=== PATIENT | female | born 1995 | race Caucasian/White ===

== ENCOUNTER 2017-06-03 20:38 | Emergency (ER) | payer MEDICAID ==
[2017-06-03 21:47] VITALS: BP 147/75
--- NOTE | 2017-06-03 21:50 | UC ---
Back Pain HPI - HPI Summary HPI Summary: 21 y/o female presents to the urgent care c/o lower back pain on and off for the past month. Pt states Patient doesn't recall any injury. Pain is only with movement is 8/10 at rest is 0/0. She hs been taking excedrin at times which has helped. She sometimes feels numbness and tingling down her left lower leg. Pt deneis fever, urinary or fecal incontinence, saddle anesthesia, SOB, chest pain , N/V/D, dizziness. - History of Current Complaint Chief Complaint: UCBackPain Stated Complaint: BACK PAIN Time Seen by Provider: 06/03/17 21:49 Hx Obtained From: Patient Hx Last Menstrual Period: 05/17/17 ?: No Onset/Duration: Gradual Onset, Lasting Weeks - 1 month, Still Present Timing: Lasting Seconds, Lasting Weeks Severity Initially: Mild Severity Currently: Moderate Pain Intensity: 8 - movement Pain Scale Used: 0-10 Numeric Back Pain: Is Discrete @ - LF side lower back pain Character: Spasmodic Aggravating: Movement, Lifting Alleviating: Rest Associated Signs And Symptoms: Positive: Numbness - at the LF hip at times. Negative: Swelling, Fever, Abdominal Pain, Flank Pain, Bladder Incontinence, Bowel Incontinence, Pain with Weight Bearing - Risk Factors AAA Risk Factors: Negative TAD Risk Factors: Negative Cauda Equina Risk Factors: Negative Epidural Abscess Risk Factors: Negative - Allergies/Home Medications Allergies/Adverse Reactions: Allergies Allergy/AdvReac Type Severity Reaction Status Date / Time No Known Allergies Allergy Verified 06/03/17 21:39 Home Medications: Home Medications Levonorgestrel & Eth Estradiol [Marlissa 0.15-30 mg-Mcg] 1 tab PO DAILY [History Confirmed 06/03/17] PMH/Surg Hx/FS Hx/Imm Hx Previously Healthy: Yes Respiratory History: Asthma - Surgical History Surgical History: None - Family History Known Family History: Positive: Cardiac Disease, Hypertension, Diabetes - Social History Occupation: Employed Full-time Lives: With Family Alcohol Use: Occasionally Substance Use Type: None Smoking Status (MU): Never Smoked Tobacco Review of Systems Constitutional: Negative Skin: Negative Eyes: Negative ENT: Negative Respiratory: Negative Cardiovascular: Negative Gastrointestinal: Negative Genitourinary: Negative Motor: Negative Neurovascular: Negative Musculoskeletal: Other: - lower back pain Neurological: Negative Psychological: Negative All Other Systems Reviewed And Are Negative: Yes Physical Exam Triage Information Reviewed: Yes Appearance: Well-Appearing, No Pain Distress, Well-Nourished, Obese - morbidly obese Vital Signs: Initial Vital Signs Temp 98.7 F 06/03/17 21:40 Pulse 114 06/03/17 21:40 Resp 18 06/03/17 21:40 BP 147/75 06/03/17 21:40 Pulse Ox 100 06/03/17 21:40 Vital Signs Reviewed: Yes Eye Exam: Normal Eyes: Positive: Conjunctiva Clear - PERRLA, EOMI ENT Exam: Normal ENT: Positive: Normal ENT inspection, Hearing grossly normal, Pharynx normal, TMs normal Neck exam: Normal Neck: Positive: Supple, Nontender, No Lymphadenopathy Respiratory Exam: Normal Respiratory: Positive: Chest non-tender, Lungs clear, Normal breath sounds, No respiratory distress Cardiovascular Exam: Normal Cardiovascular: Positive: RRR, No Murmur, Pulses Normal, Brisk Capillary Refill Abdominal Exam: Normal Abdomen Description: Positive: Nontender, No Organomegaly, Soft. Negative: CVA Tenderness (R), CVA Tenderness (L) Bowel Sounds: Positive: Present Musculoskeletal: Positive: Other: - BACK: Patient walked into the urgent care room with symmetric ambulation, No signs of limping, antalgic, able to bear weight. No signs of trauma, No masses palpated. Point tenderness at the level of L4-L5 and praspinal muscle tenderness at the same level, No CVAT, no flank ecchymosis . No sacroiliac notch tenderness, No saddle anesthesia.FROM of back. Straight Leg Raise: negative. Patellar reflexes: brisk, symmetric Muscle strength lower extremities. Dorsiflexion/ plantar flexion of ankles. Heel/ toe walk. Lower extremities: Femoral, popliteal, posterior tibial, and dorsalis pedis pulses WNL. Neurological Exam: Normal Psychological Exam: Normal Skin Exam: Normal Back Pain Course/Dx - Course Course Of Treatment: 21 y/o female presents to the urgent care c/o lower back pain on and off for the past month. Pt states Patient doesn't recall any injury. Pain is only with movement is 8/10 at rest is 0/0. She hs been taking excedrin at times which has helped. She sometimes feels numbness and tingling down her left lower leg. Pt deneis fever, urinary or fecal incontinence, saddle anesthesia, SOB, chest pain, N/V/D, dizziness. Pt most likely with a back spasm. Unable to do a Lubosacral X-ray at this time. Pt given Flexeril Po and Naproxen to alleviate symptoms of back spasm and pain. Pt tolerated well mediation and pain decrease. Pt BPelevated today, Pt advised to decreae salt in her diet, do exercise, monitoR BP and if continues to be elevated to f/u with PCP for further management. Pt strongly advised to f/u with her PCP or Orhtopedic in 7 days for further images and treatment. Pt with mild tachycardia , probably due to pain. However strongly advised if she develops. SOB, chest pain to go immediately to the ER. Pt is hemodinamically stable, stating she is feeling better. Pt understood and agreed and left the clinic ambulating A&OX3. - Differential Dx/Diagnosis Differential Diagnosis/HQI/PQRI: Arthritis, Herniated Disc, Renal Colic, Strain , Sprain, Other - back spasm, acute back pain Provider Diagnoses: 1- Lower back pain with muscle spasm. 2- elevated BP w/o HX of HTN. 3- Obesity Discharge - Discharge Plan Condition: Stable Disposition: HOME Prescriptions: Cyclobenzaprine TAB* [Flexeril 10 MG TAB*] 10 mg PO TID PRN #15 tab PRN Reason: Spasms - Muscle Naproxen TAB* [Naprosyn 250 mg TAB*] 500 mg PO Q8H PRN #30 tab PRN Reason: Pain Patient Education Materials: Acute Low Back Pain (ED), Low Sodium Diet (ED) Referrals: [facility] [Outside] - 7 Days Frandy Melton MD [Medical Doctor] - 7 Days No Primary Care Phys,NOPCP [Medical Doctor] - Additional Instructions: 1-Please take Naproxen PO q6-8hrs prn as instructed after meals to alleviate back pain. Please wear a back support. Avoid strenuous exercise or heavy lifting. 2-Take Flexeril PO to alleviate symptoms of back spasm. Please do not drive if you develop drowsiness. 3-If symptoms do not improve or worsen please please f/u with your PCP or Or[facility]opedic in 1 week for further evaluation and treatment. 4- Your BP today is elevated, please decrease salt in your diet, monitor your BP , if it continues to be elevated please f/y with your PCP for further management.
[2017-06-03] MEDS ORDERED: Cyclobenzaprine TAB* 10 MG PO ONE (22:00)
[2017-06-03] MEDS ORDERED: Naproxen TAB* 250 MG PO ONE (22:00)
== END 2017-06-03 22:15 | disposition home or self-care (01) ==
LOC: UCCORT 20:38
DX: M54.5 Low back pain (principal); M62.830 Muscle spasm of back; R03.0 Elevated blood-pressure reading, without diagnosis of hypertension; E66.9 Obesity, unspecified; J45.909 Unspecified asthma, uncomplicated
CPT/HCPCS: 99202; A9270-GY; G0463

== ENCOUNTER 2017-06-13 10:07 | Emergency (ER) | payer MEDICAID ==
[2017-06-13 10:24] VITALS: BP 159/89
--- NOTE | 2017-06-13 10:46 | RAD ---
Indication: Chest pain. 2 views of the chest including dual energy PA views demonstrate no mediastinal shift. Heart is of normal size and configuration. Lung hinkle demonstrate no pleural fluid, pneumonia or pneumothorax. IMPRESSION: No active cardiopulmonary disease is noted. No pneumothorax is noted.
--- NOTE | 2017-06-13 11:04 | UC ---
Cardiac HPI - HPI Summary HPI Summary: Chest pain since last night. today she has had a mild cough. The pain does not change with deep breaths or cough. she says maybe she feels it a little more. It is worsened with twisting her torso to the left or raising her right arm. she is on ocp but does not smoke. she denies sob or air hunger. she has a strong FH of heart disease but no PE. - History of Current Complaint Chief Complaint: UCChestPain Stated Complaint: COUGH, CHEST DISCOMFORT Time Seen by Provider: 06/13/17 10:27 Hx Obtained From: Patient Hx Last Menstrual Period: 06/13/17 Onset/Duration: Gradual Onset, Lasting Hours Timing: Constant - not episodic and not worsened by exertion. Initial Severity: Moderate Current Severity: Moderate Chest Pain Location: Discrete at:, Mid Sternal Character: Sharp/Stabbing Aggravating: Position, Movement Alleviating: Nothing Associated Signs & Symptoms: Positive: Chest Pain, Cough. Negative: Swelling, Nausea/Vomiting, Palpitations, Abdominal Pain, Calf Pain/Swelling - Risk Factors Pulmonary Embolism Risk Factors: Oral Contraceptives Cardiac Risk Factors: Family History - Allergy/Home Medications Allergies/Adverse Reactions: Allergies Allergy/AdvReac Type Severity Reaction Status Date / Time No Known Allergies Allergy Verified 06/13/17 10:18 PMH/Surg Hx/FS Hx/Imm Hx Previously Healthy: Yes - Surgical History Surgical History: None - Family History Known Family History: Positive: Cardiac Disease, Hypertension, Diabetes - Social History Occupation: Employed Part-time, Student Alcohol Use: None Substance Use Type: None Smoking Status (MU): Never Smoked Tobacco - Immunization History Most Recent Influenza Vaccination: NONE 2017 Review of Systems Cardiovascular: Chest Pain All Other Systems Reviewed And Are Negative: Yes Physical Exam Triage Information Reviewed: Yes Appearance: Well-Appearing, No Pain Distress, Well-Nourished, Obese Vital Signs: Initial Vital Signs Temp 98.3 F 06/13/17 10:19 Pulse 105 06/13/17 10:19 Resp 18 06/13/17 10:19 BP 159/89 06/13/17 10:19 Pulse Ox 99 06/13/17 10:19 Vital Signs Reviewed: Yes Eye Exam: Normal Neck exam: Normal Respiratory Exam: Normal Cardiovascular Exam: Normal Abdominal Exam: Normal Musculoskeletal Exam: Normal Neurological Exam: Normal Psychological Exam: Normal Skin Exam: Normal - Assessment/Plan Course Of Treatment: constant sharp cp not worsened by exertion. Non pleuritic and calf exam nazario benign with neg homans. She denies sob and during my exam her HR is 90. I do not believe this is PE. it is not c/w cardiac etiology but for completeness, we will get EKG. This is normal as well. her only risk factor is family history. Finally, it is positional. she is re assured and not as nervous as on arrival. she will f/u with pcp. - Differential Diagnoses - Chest Pain Differential Diagnosis/HQI/PQRI: Acute TN, ACS, Aortic Aneurysm, Chest Wall, GI Disease, Lower Respiratory Infection, Pulmonary Edema, Pulmonary Embolism - Clinical Impression Provider Diagnoses: musculoskeletal chest pain Discharge - Discharge Plan Condition: Good Disposition: HOME Patient Education Materials: Chest Pain (ED), Noncardiac Chest Pain (ED) Referrals: Janice Morejon MD [Primary Care Provider] - 2 Days
[2017-06-13] MEDS ORDERED: Ibuprofen TAB* 600 MG PO ONE (11:11)
== END 2017-06-13 11:21 | disposition home or self-care (01) ==
LOC: UCCORT 10:07
DX: R07.89 Other chest pain (principal)
CPT/HCPCS: 71020; 93005; 99212; A9270-GY; G0463